=== PATIENT | male | born 1980 | race Caucasian/White ===

== ENCOUNTER 2019-07-01 11:37 | Inpatient (IN) | payer OTHER ==
[~2019-07-01] VITALS: Ht 182.9 cm; Wt 83.0 kg
[2019-07-01 12:27] LABS: BASO % 0.3 % (0.0-1.0); EOS # 0.1 10^3/uL (0.0-0.5); EOS % 0.6 % (0.0-3.0); HEMOGLOBIN 16.3 g/dl (13.5-17.5); LYMPH # 2.6 10^3/uL (1.5-5.0); LYMPH % 20.1 % (24.0-44.0); MEAN CORPUSCULAR HEMOGLOBIN 31.8 pg (27.0-33.0); MEAN CORPUSCULAR VOLUME 93.8 fl (80.0-96.0); MONO # 0.9 10^3/uL (0.0-0.8); NEUTROPHILS # 9.4 10^3/uL (1.5-8.5); NEUTROPHILS % 71.6 % (36.0-66.0); PLATELET COUNT, AUTOMATED 229 10^3/uL (150-450); RED BLOOD COUNT 5.12 10^6/uL (4.30-6.10); WHITE BLOOD COUNT 13.2 10^3/uL (4.0-10.0)
[2019-07-01 12:54] LABS: ALBUMIN 4.3 GM/DL (3.2-5.2); ALT/SGPT 27 U/L (12-78); BILIRUBIN,DIRECT 0.2 MG/DL (0.0-0.2); BILIRUBIN,TOTAL 0.8 MG/DL (0.2-1.0); BLOOD UREA NITROGEN 11 MG/DL (7-18); CALCIUM LEVEL 9.8 MG/DL (8.5-10.1); CARBON DIOXIDE LEVEL 29 MEQ/L (21-32); CHLORIDE LEVEL 105 MEQ/L (98-107); CREATININE FOR GFR 0.85 MG/DL (0.70-1.30); GLOMERULAR FILTRATION RATE > 60.0 (>60); GLUCOSE, FASTING 90 MG/DL (70-100); LIPASE 51 U/L (73-393); POTASSIUM SERUM 4.1 MEQ/L (3.5-5.1); SODIUM LEVEL 139 MEQ/L (136-145); TOTAL PROTEIN 7.6 GM/DL (6.4-8.2)
[2019-07-01] MEDS ORDERED: NS 1,000 ML IV ONE (13:30)
[2019-07-01] MEDS ORDERED: ONDANSETRON 4MG/2ML VIAL IV ONE (13:30)
[2019-07-01] MEDS ORDERED: MORPHINE 4 MG/ML 1ML VIAL/SYRINGE (J2270) IV ONE (13:30)
[2019-07-01] MEDS ORDERED: ISOVUE-370 76% 100ML VIAL As Ordered ONE (13:54)
[2019-07-01] MEDS ORDERED: MORPHINE 2 MG/ML 1ML VIAL (J2270) IV ONE ×2 (14:15→16:00)
--- NOTE | 2019-07-01 14:41 | REP ---
CT ABDOMEN AND PELVIS WITH IV CONTRAST: TECHNIQUE: Axial contrast enhanced images from the lung bases to the pubic symphysis using 100 mL Isovue-370 intravenous contrast material with multiplanar reformations. In the visualized lung bases, there is some fibrotic scarring in the left lower lobe. There is an old fracture of the left rib with some mild adjacent pleuroparenchymal scarring. The liver demonstrates a tiny hypodensity in the left lobe probably representing a tiny cyst . Spleen is unremarkable as are the adrenal glands and pancreas. Probably tiny cyst is seen in the lower pole of the right kidney. There is no hydronephrosis bilaterally. There is no abdominal aortic aneurysm. No adenopathy or free air is seen. The appendix is dilated with thickening and stranding of periappendiceal fat, consistent with appendicitis. In the base of the appendix, there is an appendicolith measuring 16 mm in diameter. More distally in the appendix, an appendicolith is seen measuring 7 mm in diameter. There is a tiny amount of free fluid in the pelvis. IMPRESSION: Appendicitis. There is a 16 mm appendicolith in the base of the dilated, thickened appendix. There is a 7 mm appendicolith in the more distal appendix. There is a tiny amount of free fluid in the pelvis. There is no periappendiceal abscess or evidence of free air. Electronically Signed by Stan Hernandez MD 07/01/2019 02:46 P
[2019-07-01] MEDS ORDERED: PIPERACILLIN/TAZOBACTAM SOD 3.375 GM in D5W MINI-BAG PLUS 50 ML IV ONE (14:45)
[2019-07-01] MEDS ORDERED: NICOTINE 14 MG/24 HR TRANSDERMAL TD ONE (16:00)
[2019-07-01] MEDS ORDERED: KETOROLAC 30 MG/ML 1ML VIAL IV ONE (18:00)
[2019-07-01] MEDS ORDERED: LIDOCAINE 1% SDV 30ML VIAL As Ordered ONE (21:08)
[2019-07-01] MEDS ORDERED: BUPIVACAINE HCL 0.25% 30ML VIAL As Ordered ONE (21:08)
[2019-07-01] MEDS ORDERED: ZOSYN 3.375GM VIAL (J2543) As Ordered ONE (21:41)
[2019-07-01] MEDS ORDERED: ROCURONIUM BROMIDE 50 MG/5 ML VIAL As Ordered ONE (21:54)
[2019-07-01] MEDS ORDERED: LIDOCAINE 2% 100MG/5ML SDV (FOR ANES.) As Ordered ONE (21:54)
[2019-07-01] MEDS ORDERED: fentaNYL 250 MCG/5 ML INJECTION (J3010) As Ordered ONE (21:54)
[2019-07-01] MEDS ORDERED: ACETAMINOPHEN 1000MG 100ML IV BTL (OFIRMEV) (J0131 PER 10MG) As Ordered ONE (21:54)
[2019-07-01] MEDS ORDERED: MIDAZOLAM INJ 2MG/2ML VIAL (J2250 PER 1MG) As Ordered ONE (21:54)
[2019-07-01] MEDS ORDERED: SUGAMMADEX SODIUM 500 MG/5 ML VIAL (BRIDION) As Ordered ONE (21:54)
[2019-07-01] MEDS ORDERED: KETOROLAC 60 MG/2 ML VIAL As Ordered ONE (21:54)
[2019-07-01] MEDS ORDERED: propofoL 200 MG/20 ML VIAL As Ordered ONE (21:54)
[2019-07-01] MEDS ORDERED: dexameTHASONE 4 MG/ML 1ML VIAL (J1100 PER 1MG) As Ordered ONE (21:54)
[2019-07-01] MEDS ORDERED: ONDANSETRON 4MG/2ML VIAL As Ordered ONE (21:54)
[2019-07-01] MEDS ORDERED: LR 1,000 ML IV SCH ×2 (22:34→23:00)
[2019-07-01] MEDS ORDERED: ONDANSETRON 4MG/2ML VIAL IV PRN ×2 (22:45→23:00)
[2019-07-01] MEDS ORDERED: PERCOCET 5MG/325MG TAB PO PRN (22:45)
[2019-07-01] MEDS ORDERED: MEPERIDINE INJ 25 MG/ML VIAL (J2175) As Ordered ONE (22:48)
[2019-07-01] MEDS ORDERED: ACETAMINOPHEN TAB 650MG DOSE (2X325MG) PO PRN (23:00)
[2019-07-01] MEDS ORDERED: fentaNYL 100 MCG/2 ML INJECTION (J3010) IV PRN (23:00)
[2019-07-01] MEDS ORDERED: oxyCODONE 5MG TAB PO PRN (23:00)
[2019-07-01] MEDS ORDERED: MEPERIDINE INJ 25 MG/ML VIAL (J2175) IV PRN (23:00)
[2019-07-01 23:46] VITALS: BP 123/70
[2019-07-02] VITALS (10 sets, daily range): BP systolic 101–116; BP diastolic 53–64
[2019-07-02] MEDS: KETOROLAC 30 MG/ML 1ML VIAL IV PRN ×3 (00:21→17:05)
[2019-07-02] MEDS: PIPERACILLIN/TAZOBACTAM SOD 3.375 GM in D5W MINI-BAG PLUS 50 ML IV SCH ×5 (00:22→22:47)
[2019-07-02] MEDS: NICOTINE 21MG/24HR 1 EA TRANSDERMAL TD SCH ×2 (01:32→09:48)
[2019-07-02] MEDS: MORPHINE 2 MG/ML 1ML VIAL (J2270) IV PRN ×4 (01:51→22:50)
[2019-07-02] MEDS: PERCOCET 5MG/325MG TAB PO PRN ×2 (03:05→18:44)
[2019-07-02 06:29] LABS: HEMATOCRIT 40.9 % (42.0-52.0); MEAN CORPUSCULAR HEMOGLOBIN 31.7 pg (27.0-33.0); MEAN CORPUSCULAR HGB CONC 33.7 g/dl (32.0-36.5); MEAN CORPUSCULAR VOLUME 93.8 fl (80.0-96.0); PLATELET COUNT, AUTOMATED 187 10^3/uL (150-450); RED BLOOD COUNT 4.36 10^6/uL (4.30-6.10); WHITE BLOOD COUNT 16.3 10^3/uL (4.0-10.0)
[2019-07-02 06:39] LABS: HEMOGLOBIN 13.8 g/dl (13.5-17.5)
[2019-07-02 06:53] LABS: BLOOD UREA NITROGEN 14 MG/DL (7-18); CALCIUM LEVEL 8.1 MG/DL (8.5-10.1); CARBON DIOXIDE LEVEL 29 MEQ/L (21-32); CHLORIDE LEVEL 105 MEQ/L (98-107); CREATININE FOR GFR 1.05 MG/DL (0.70-1.30); GLOMERULAR FILTRATION RATE > 60.0 (>60); GLUCOSE, FASTING 157 MG/DL (70-100); SODIUM LEVEL 140 MEQ/L (136-145)
[2019-07-02 07:06] LABS: BASOPHILS 1 % (0-1); LYMPHOCYTES 5 % (16-44); MONOCYTES 2 % (0-5); NEUTROPHILS 91 % (28-66); PLATELET ESTIMATE NORMAL (NORMAL)
[2019-07-02] MEDS: ENOXAPARIN 40MG/0.4ML SYRINGE (J1650 PER 10MG) SC SCH (09:48)
[2019-07-02] MEDS: SENOKOT S TAB PO SCH ×2 (09:48→22:47)
[2019-07-02] MEDS: PANTOPRAZOLE 40MG VIAL (C9113 PER 1) IV SCH (09:48)
--- NOTE | 2019-07-02 12:55 | HPEPDOC ---
General Surgery H&P Date of Admission July 01, 2019 Attending Physician: MYA ROMO MD History and Physical CHIEF COMPLAINT: Abdominal pain HISTORY OF PRESENT ILLNESS: Patient is a 38-year-old male prisoner from a local snf brought in with complaints of 2 day history of severe abdominal pain with nausea and vomiting. ALLERGIES: Please see below. HOME MEDICATIONS: Please see below. PAST MEDICAL HISTORY: 1. . 2. . PAST SURGICAL HISTORY: 1. . 2. . PERSONAL/SOCIAL HISTORY: [Denies smoking, alcohol use, or recreational drug use]. REVIEW OF SYSTEMS: GENERAL: [Denies chills, fatigue, fever, weight gain and weight loss]. HEENT: [Denies blurred vision and double vision. Denies ear symptoms. Denies hoarseness]. NECK: [Denies any neck pain]. CARDIOVASCULAR: [Denies chest pain and palpitations]. MUSCULOSKELETAL: [Denies arthralgias, back pain and thrombophlebitis]. SKIN: [Denies rash]. NEUROLOGIC: [Denies headache, stroke and transient ischemic attack]. PSYCHIATRIC: [Denies anxiety and depression]. ENDOCRINE: [Denies thyroid disease]. HEMATOLOGY/ONCOLOGY: [Denies any bleeding or clotting disorder]. HEART: [Denies any chest pains, palpitations, paroxysmal dyspnea, orthopnea]. PULMONARY: [Denies chronic cough, dyspnea and wheezing]. GASTROINTESTINAL: [Denies rectal bleeding, family history of colon cancer, constipation, diarrhea, dysphagia, heartburn and jaundice]. GENITOURINARY: [Denies dysuria, frequency, hematuria and nocturia]. ENDOCRINE: [Denies polydipsia, polyphagia, polyuria, heat or cold intolerance]. INFECTIOUS: [Denies any recent upper respiratory tract infection, UTI, need for use of antibiotics]. NUTRITION: [Reports good appetite]. PHYSICAL EXAMINATION: VITAL SIGNS: Please see below. GENERAL APPEARANCE: [Patient seen at bedside, appears comfortable]. [Awake, alert, oriented]. HEENT: [Normocephalic, atraumatic. [place] palpebral conjunctivae. Anicteric sclerae. Lips moist]. CHEST: [No chest wall abnormalities. Normal respiratory motion/effort]. NECK: [Supple. No thyromegaly. No lymphadenopathies]. LUNGS: [Lung sounds are clear to auscultation bilaterally. No wheezing appreciated]. HEART: [No chest wall abnormalities. Heart rate and rhythm are regular with no murmurs]. ABDOMEN: [Abdomen is obese, soft, slightly rounded. No hepatosplenomegaly. No umbilical or groin herniations, nondistended. No noticeable rebound or guarding. No grimacing with palpation. No rebound tenderness. No masses appreciated]. SKIN: [Warm, moist]. EXTREMITIES: [Extremities have no deformities. No edema identified]. NEUROLOGICAL: . ANCILLARIES: . LABORATORY DATA: Please see below. MICROBIOLOGY: Please see below. IMAGING: . IMPRESSION AND PLAN: Acute appendicitis Vital Signs Vital Signs Date Time Temp Pulse Resp B/P (MAP) Pulse Ox O2 Delivery O2 Flow Rate FiO2 07/02/19 08:00 97.9 72 17 113/53 (73) 98 Room Air 07/01/19 22:45 10 I&Os I&O- Last 24 Hours up to 6 AM 07/02/19 06:00 Intake Total 3295 ml Output Total 735 ml Balance 2560 ml Laboratory Data Labs 24H Laboratory Tests 2 07/01/19 15:10: Coronavirus (COVID-19)(PCR) NEGATIVE 07/02/19 05:25: Neutrophils (%) (Auto) , Nucleated Red Blood Cells % (auto) 0.0, Neutrophils 91H, Band Neutrophils 1, Lymphocytes (Manual) 5L, Monocytes (Manual) 2, Basophils (Manual) 1, Red Blood Cell Morphology NORMAL, Platelet Estimate NOR MAL, Anion Gap 6L, Glomerular Filtration Rate > 60.0, Calcium Level 8.1#L CBC/BMP Laboratory Tests 07/02/19 05:25 Microbiology Microbiology 07/01/19 Gram Stain - Final, Resulted 07/01/19 Body Fluid Culture, Resulted Pending 07/01/19 Anaerobic Culture, Resulted Pending Home Medications No Active Prescriptions or Reported Meds Allergies Coded Allergies: tramadol (Verified Allergy, Intermediate, rash, 07/01/19) MYA ROMO MD July 02, 2019 12:55
--- NOTE | 2019-07-02 12:56 | ROOPDOC ---
[facility] Report Of Operation Report of Operation DATE OF PROCEDURE: 07/01/19 PREPROCEDURE DIAGNOSES: Acute appendicitis. POSTPROCEDURE DIAGNOSES: Acute appendicitis with perforation. PROCEDURE: Laparoscopic appendectomy. SURGEON: Bruno Rivera MD FINANCIAL ANALYST: ANESTHESIA: Gen. anesthesia. ESTIMATED BLOOD LOSS: Approximately 20 mL. COMPLICATIONS: None. REMARKS: Overall healthy 38-year-old male, from a local half-way brought in to the emergency room with a 2 day history of right lower quadrant abdominal pain, and right side localized peritonitis on exam and evidence for acute appendicitis on CT.. PROCEDURE NOTE: Free fluid around the liver and in the pelvis which appears brownish, murky in appearance. The omentum surrounding the cecum and distal end of the small bowel is adhered with inflammatory exudates to the cecum. The appendix is rather short in course but very distended the proximal third portion with a thickened inflamed mesentery and perforation at that site and noted drainage of clear fluid from the perforation. The base of the appendix is inflamed but healthy appearance. DESCRIPTION OF PROCEDURE: Patient has been given a dose of Zosyn in the emergency room and repeated during the procedure. Patient was brought to the operating room, placed supine on the table. Sequential compression device placed for DVT prophylaxis. General endotracheal anesthesia started. The abdomen prepped and draped in usual sterile fashion. After a surgical timeout, we began our surgery Entry into the abdomen done through an incision above the umbilicus. Veress needle inserted on a controlled fashion. Intra-abdominal placement confirmed with saline drop technique. CO2 insufflation started to a pressure of 15 mmHg. Using the same incision an 8 mm port was placed under direct vision of laparoscope. Insertion site was inspected for injury and none was found. He was placed on a Trendelenburg position the right side tilted to about 30 to allow for better visualization of the appendix. Two 5 mm working ports were placed at the suprapubic area and left lower quadrant area under direct vision. Operative findings: On entry there is murky-appearing ascites especially prominent at the pelvis also at the right gutter and slightly perihepatic. The o mentum on the right lower quadrant appears inflamed with inflammatory exudates in it. This was stuck to the underlying cecum and appendix. This was lysed away and retracted to the upper quadrants revealing secondary enteritis on the small bowel located in the lower abdomen, brownish murky ascites in the pelvis and an inflamed enlarged appendix. The appendix was located, the adhered bowels and mesentery was widely dissected away from the appendix freeing up the appendix from the inflammatory adhesions using [place] instrument and suction irrigation. The Surrounding bowels retracted away from the appendix. This was grasped to pull the base of the appendix into view. The mesoappendix was divided using Harmonic scalpel down to the base. The proximal third of the appendix is quite enlarged with a perforation noted towards the base with the cage of clear fluid. I dissected beyond the area to be able to get a good purchase on the stump of the appendix. I upsized the umbilical port to a 12 mm port to accommodate his stapler. I used a 45 mm stapler with blue load to transect the appendix at the base. The staple line was examined and noted to be healthy. No bleeding noted along the staple line. Stump appears healthy. Appendix was then delivered into an Endo Catch bag. After re-insufflation the surgical site was inspected for hemostasis, the visualized fluid collections irrigated and suctioned off until clear return. A sample of the fluid was sent for microbiology. Surrounding areas of the abdomen and inspected for fluid collections or signs of injury. A 19 Oscar drain was left in place close to the abdomen initial stump for monitoring and for drainage of fluid irrigation. The abdomen was deflated. All ports removed. The umbilical fascial defect repaired with 0 Vicryl in a mattress fashion. All skin incisions closed with 4-0 Monocryl in a subcuticular fashion. Steri-Strips and gauze dressing used for wound coverage. Patient was promptly awake and extubated and brought to recovery room stable. All counts of sponges and instruments verified to be correct. BRUNO RIVERA MD July 02, 2019 12:56
[2019-07-03 01:15] VITALS: BP 114/67
[2019-07-03 02:00] VITALS: BP 119/64
[2019-07-03] MEDS ORDERED: NS 1,000 ML IV ONE (02:00)
[2019-07-03] MEDS: PERCOCET 5MG/325MG TAB PO PRN ×4 (02:02→23:08)
[2019-07-03] MEDS: KETOROLAC 30 MG/ML 1ML VIAL IV PRN ×3 (02:03→14:10)
[2019-07-03] MEDS: PIPERACILLIN/TAZOBACTAM SOD 3.375 GM in D5W MINI-BAG PLUS 50 ML IV SCH ×4 (05:40→23:05)
[2019-07-03] MEDS: MORPHINE 2 MG/ML 1ML VIAL (J2270) IV PRN ×4 (05:42→20:54)
[2019-07-03 05:49] LABS: BASO % 0.3 % (0.0-1.0); EOS # 0.2 10^3/uL (0.0-0.5); EOS % 1.7 % (0.0-3.0); HEMATOCRIT 37.1 % (42.0-52.0); HEMOGLOBIN 12.5 g/dl (13.5-17.5); LYMPH # 2.1 10^3/uL (1.5-5.0); LYMPH % 17.9 % (24.0-44.0); MEAN CORPUSCULAR HEMOGLOBIN 32.2 pg (27.0-33.0); MEAN CORPUSCULAR HGB CONC 33.7 g/dl (32.0-36.5); MEAN CORPUSCULAR VOLUME 95.6 fl (80.0-96.0); MONO # 0.5 10^3/uL (0.0-0.8); MONO % 4.3 % (0.0-5.0); NEUTROPHILS # 8.9 10^3/uL (1.5-8.5); NEUTROPHILS % 75.4 % (36.0-66.0); PLATELET COUNT, AUTOMATED 166 10^3/uL (150-450); RED BLOOD COUNT 3.88 10^6/uL (4.30-6.10); WHITE BLOOD COUNT 11.9 10^3/uL (4.0-10.0)
[2019-07-03 06:00] VITALS: BP 117/63
[2019-07-03 06:06] LABS: BLOOD UREA NITROGEN 12 MG/DL (7-18); CALCIUM LEVEL 7.6 MG/DL (8.5-10.1); CARBON DIOXIDE LEVEL 30 MEQ/L (21-32); CHLORIDE LEVEL 111 MEQ/L (98-107); CREATININE FOR GFR 0.85 MG/DL (0.70-1.30); GLOMERULAR FILTRATION RATE > 60.0 (>60); GLUCOSE, FASTING 110 MG/DL (70-100); POTASSIUM SERUM 3.9 MEQ/L (3.5-5.1); SODIUM LEVEL 144 MEQ/L (136-145)
[2019-07-03] MEDS: SENOKOT S TAB PO SCH ×2 (07:52→20:52)
[2019-07-03] MEDS: NICOTINE 21MG/24HR 1 EA TRANSDERMAL TD SCH (07:53)
[2019-07-03] MEDS: ENOXAPARIN 40MG/0.4ML SYRINGE (J1650 PER 10MG) SC SCH (07:53)
[2019-07-03] MEDS: PANTOPRAZOLE 40MG VIAL (C9113 PER 1) IV SCH (07:53)
[2019-07-03] MEDS: MIRALAX *UNIT DOSE* 17GM PACKET PO SCH (10:06)
[2019-07-03] MEDS ORDERED: MORPHINE 4 MG/ML 1ML VIAL/SYRINGE (J2270) IV ONE (11:30)
[2019-07-03] MEDS: TAMSULOSIN 0.4 MG CAP PO SCH (11:38)
--- NOTE | 2019-07-03 11:55 | IPNPDOC ---
Text Note Date of Service The patient was seen on 07/02/19. VS,Ricky, I+O VS, Kirstiee, I+O Laboratory Tests 07/03/19 05:33 Vital Signs Date Time Temp Pulse Resp B/P (MAP) Pulse Ox O2 Delivery O2 Flow Rate FiO2 07/03/19 11:38 18 Room Air 07/03/19 06:00 97.6 73 117/63 (81) 98 07/02/19 18:44 0.0 I&O- Last 24 Hours up to 6 AM 07/03/19 06:00 Intake Total 3536 ml Output Total 900 ml Balance 2636 ml MYA ROMO MD July 03, 2019 11:55
--- NOTE | 2019-07-03 12:03 | IPNPDOC ---
Subjective General Date/Time Seen The patient was seen on 07/03/19 at 11:55. Subject Chief Complaint/History The patient is a 38-year-old male admitted with a reason for visit of Acute Appendicitis. He is postop day 2 following laparoscopic appendectomy for perforated appendicitis. He is complaining today of pain at the mid shaft of his pain is radiating to his groin and his testicles flares up when he pees and immediately after. He denies hematuria though prior to the surgery he did have some arrange looking urine in the preop area. He does have a history of passing kidney stones out. A urinalysis was ordered by the the covering surgeon overnight and this was clear without any evidence of RBC the urine. He has been afebrile. He is tolerating diet. Has not had any bowel movements. He remains on Zosyn. Current Medications Current Medications Current Medications Medications (Trade) Dose Ordered Sig/Rochelle Route PRN Reason Start Time Stop Time Status Last Admin Dose Admin Acetaminophen (Tylenol Tab) 650 mg Q4HP PRN PO PAIN OR FEVER 07/01/19 23:00 Enoxaparin Sodium (Lovenox) 40 mg DAILY SC 07/02/19 09:00 07/03/19 07:53 Fentanyl Citrate (Sublimaze) 25 mcg Q5MP PRN IV PAIN LEVEL 5-10 07/01/19 23:00 07/01/19 23:59 DC Home Med (Med Rec Complete!) ASDIRECTED XX 07/01/19 15:30 07/01/19 15:24 DC Ketorolac Tromethamine (ToRADol) 30 mg Q6HP PRN IV MILD/MODERATE PAIN (PS 1-7) 07/02/19 00:00 07/07/19 00:00 07/03/19 07:52 Lactated Ringer's 1,000 ml @ 80 mls/hr [id number] IV 07/01/19 22:34 07/02/19 10:54 DC 07/02/19 00:19 Lactated Ringer's 1,000 ml @ 100 mls/hr Q10H IV 07/01/19 23:00 07/01/19 23:59 DC Meperidine HCl (Demerol) 12.5 mg Q5MP PRN IV SHIVERING 07/01/19 23:00 07/01/19 23:59 DC 07/01/19 22:50 Morphine Sulfate (Morphine Sulfate Inj) 4 mg Q4H PRN IV SEVERE PAIN (PS 8-10) 07/01/19 22:45 07/03/19 10:10 Nicotine (Nicoderm Cq 21mg) 1 patch DAILY TD 07/02/19 01:18 07/03/19 07:53 Ondansetron HCl (ZOFRAN INJection) 4 mg Q4HP PRN IV NAUSEA OR VOMITING 07/01/19 23:00 07/01/19 23:59 DC Ondansetron HCl (ZOFRAN INJection) 4 mg Q6HP PRN IV NAUSEA OR VOMITING 07/01/19 22:45 07/02/19 14:28 Oxycodone HCl (Roxicodone, Oxyir) 5 mg ASDIRECTED PRN PO PAIN LEVEL 1-4 07/01/19 23:00 07/01/19 23:59 DC 07/01/19 23:30 Oxycodone/ Acetaminophen (Percocet 5mg/ 325mg Tablet) 1 tab Q4H PRN PO MILD/MODERATE PAIN (PS 1-7) 07/01/19 22:45 Oxycodone/ Acetaminophen (Percocet 5mg/ 325mg Tablet) 2 tab Q6H PRN PO SEVERE PAIN (PS 8-10) 07/01/19 22:45 07/03/19 07:54 Pantoprazole Sodium (Protonix) 40 mg DAILY IV 07/02/19 09:00 07/03/19 07:53 Phenazopyridine HCl (Pyridium) 100 mg BID PO 07/03/19 09:00 Piperacillin Sod/ Tazobactam Sod 3.375 gm/Dextrose 50 ml @ 50 mls/hr Q6H IV 07/01/19 23:00 07/03/19 10:07 Polyethylene Glycol (Miralax) 1 pkt DAILY PO 07/03/19 09:00 07/03/19 10:06 Senna/Docusate Sodium (Senokot S) 1 tab BID PO 07/02/19 09:00 07/03/19 07:52 Tamsulosin HCl (Flomax) 0.4 mg DAILY PO 07/03/19 09:00 07/03/19 11:38 Allergies Coded Allergies: tramadol (Verified Allergy, Intermediate, rash, 07/01/19) Objective Physical Examination Examination GENERAL APPEARANCE: On examination he looks uncomfortable mainly from the pain on the lower abdomen, right groin, moves gingerly from sitting to supine position. SKIN: Warm and dry. HEENT: Normocephalic, atraumatic. Lips and mucosa appear moist. LUNGS: Clear to auscultation bilaterally. No wheezing appreciated. HEART: Regular heart rate and rhythm. ABDOMEN: Abdomen is minimally distended and slightly tympanitic to percussion, soft, mild tenderness over the right lower quadrant area which slightly worsens as it approaches the right groin into the bottom of the scrotum. There is no corresponding tenderness in the left groin. He has also mildly tender around the drain exit site in the left lower quadrant history and is now putting out serosanguineous fluid, before this was dark brown murky. EXTREMITIES: No significant extremity edema. Vital Signs Vital Signs Date Time Temp Pulse Resp B/P (MAP) Pulse Ox O2 Delivery O2 Flow Rate FiO2 07/03/19 11:38 18 Room Air 07/03/19 06:00 97.6 73 117/63 (81) 98 07/02/19 18:44 0.0 I&Os I&O- Last 24 Hours up to 6 AM 07/03/19 06:00 Intake Total 3536 ml Output Total 900 ml Balance 2636 ml Laboratory Data Labs 24H Laboratory Tests 2 07/03/19 05:16: Urine Color YELLOW, Urine Appearance CLEAR, Urine pH 5.0, Urine Specific [place] 1.010, Urine Protein NEGATIVE, Urine Glucose (UA) NEGATIVE, Urine Ketones NEGATIVE, Urine Blood NEGATIVE, Urine Nitrite NEGATIVE, Urine Bilirubin NEGATIVE, Urine Urobilinogen 0.2, Urine Leukocyte Esterase NEGATIVE, Urine WBC (Auto) 1, Urine RBC (Auto) 3, Urine Hyaline Casts (Auto) 0, Urine Bacteria (Au to) NEGATIVE, Urine Squamous Epithelial Cells 0, Urine Mucus (Auto) SMALL, Urine Sperm (Auto) 07/03/19 05:33: Immature Granulocyte % (Auto) 0.4, Neutrophils (%) (Auto) 75.4H, Lymphocytes (%) (Auto) 17.9L, Monocytes (%) (Auto) 4.3, Eosinophils (%) (Auto) 1.7, Basophils (%) (Auto) 0.3, Neutrophils # (Auto) 8.9H, Lymphocytes # (Auto) 2.1, Monocytes # (Auto) 0.5, Eosinophils # (Auto) 0.2, Basophils # (Auto) 0.0, Nucleated Red Blood Cells % (auto) 0.0, Anion Gap 3L, Glomerular Filtration Rate > 60.0, Calcium Level 7.6L CBC/BMP Laboratory Tests 07/03/19 05:33 Microbiology Microbiology 07/01/19 Gram Stain - Final, Resulted 07/01/19 Body Fluid Culture, Resulted Pending 07/01/19 Anaerobic Culture, Resulted Pending Impression Acute perforated appendicitis status post laparoscopic appendectomy, postop day 2 In terms of the perforated appendicitis he is not showing any signs of fever, sepsis and his leukocytosis started to come down. Is a 16,000 yesterday down to 11,000 today. His abdomen is mildly distended but relatively benign in appearance and his drain is not putting out serosanguineous fluid. There is roughly about 60 mL in the CHUCK bulb which is his output for the shift. Yesterday this was dark brown and murky. So from this standpoint syllabus is not febrile and his leukocytosis continues to taper down to normal we should be able to convert to by mouth antibiotics. There was an issue with regards to whether he will be able to go back to longterm with a drain and I was able to speak to the physician at the longterm (Dr. Muro) who is a surgeon and he tells me that he could take care of the drain and the longterm when he returns. Secondary issue is with regards to his complaint of right groin pain, right penile pain and right scrotal pain. I examined him and he does not have any right groin hernia. He does have a prior history of passing kidney stones. No signs of hydronephrosis on the admitting CT scan and he had a normal urinalysis done early this morning so unlikely he is passing a stone. I suspect this is an element of cystitis from the irritation from the infected fluid. I'll add some Flomax and Pyridium and see if this will alleviate the discomfort. I discussed his ongoing progress with Dr. Muro after my visit. Most likely will be able to discharge him in a day or 2 with by mouth antibiotics with or without the drain. Plan / VTE VTE Prophylaxis Ordered?: Yes MYA ROMO MD July 03, 2019 12:03
[2019-07-03] MEDS: PHENAZOPYRIDINE 100 MG TAB PO SCH ×2 (13:10→20:53)
[2019-07-03 14:00] VITALS: BP 120/62
[2019-07-03 22:00] VITALS: BP 122/63
[2019-07-04] MEDS: MORPHINE 2 MG/ML 1ML VIAL (J2270) IV PRN (01:31)
[2019-07-04] MEDS: PIPERACILLIN/TAZOBACTAM SOD 3.375 GM in D5W MINI-BAG PLUS 50 ML IV SCH ×2 (04:29→10:22)
[2019-07-04 05:55] LABS: BASO % 0.6 % (0.0-1.0); EOS # 0.3 10^3/uL (0.0-0.5); EOS % 4.8 % (0.0-3.0); HEMATOCRIT 35.4 % (42.0-52.0); HEMOGLOBIN 11.9 g/dl (13.5-17.5); LYMPH # 1.8 10^3/uL (1.5-5.0); MEAN CORPUSCULAR HEMOGLOBIN 32.1 pg (27.0-33.0); MEAN CORPUSCULAR HGB CONC 33.6 g/dl (32.0-36.5); MEAN CORPUSCULAR VOLUME 95.4 fl (80.0-96.0); MONO # 0.5 10^3/uL (0.0-0.8); MONO % 7.9 % (0.0-5.0); NEUTROPHILS # 3.9 10^3/uL (1.5-8.5); NEUTROPHILS % 59.5 % (36.0-66.0); PLATELET COUNT, AUTOMATED 176 10^3/uL (150-450); RED BLOOD COUNT 3.71 10^6/uL (4.30-6.10); WHITE BLOOD COUNT 6.6 10^3/uL (4.0-10.0)
[2019-07-04 06:00] VITALS: BP 126/68
[2019-07-04 06:11] LABS: BLOOD UREA NITROGEN 8 MG/DL (7-18); CALCIUM LEVEL 7.9 MG/DL (8.5-10.1); CARBON DIOXIDE LEVEL 28 MEQ/L (21-32); CHLORIDE LEVEL 111 MEQ/L (98-107); CREATININE FOR GFR 0.78 MG/DL (0.70-1.30); GLOMERULAR FILTRATION RATE > 60.0 (>60); GLUCOSE, FASTING 123 MG/DL (70-100); POTASSIUM SERUM 3.7 MEQ/L (3.5-5.1); SODIUM LEVEL 145 MEQ/L (136-145)
[2019-07-04] MEDS: ENOXAPARIN 40MG/0.4ML SYRINGE (J1650 PER 10MG) SC SCH (08:15)
[2019-07-04] MEDS: PANTOPRAZOLE 40MG VIAL (C9113 PER 1) IV SCH (08:15)
[2019-07-04] MEDS: MIRALAX *UNIT DOSE* 17GM PACKET PO SCH (08:15)
[2019-07-04] MEDS: SENOKOT S TAB PO SCH (08:16)
[2019-07-04] MEDS: PERCOCET 5MG/325MG TAB PO PRN (08:16)
[2019-07-04] MEDS: TAMSULOSIN 0.4 MG CAP PO SCH (08:16)
[2019-07-04] MEDS: NICOTINE 21MG/24HR 1 EA TRANSDERMAL TD SCH (08:17)
[2019-07-04] MEDS ORDERED: METR-265 PO (09:53)
[2019-07-04] MEDS ORDERED: CIPR-249 PO (09:53)
[2019-07-04] MEDS ORDERED: PHEN-593 PO (09:53)
[2019-07-04] MEDS ORDERED: PERCOCET PO (09:53)
[2019-07-04] MEDS: PHENAZOPYRIDINE 100 MG TAB PO SCH (10:22)
--- NOTE | 2019-07-04 10:59 | IPNPDOC ---
Text Note Date of Service The patient was seen on 07/04/19. NOTE Patient feeling mildly better from the groin pain as well as from the dysuria. He remains afebrile. He is tolerating regular food. He has not had a bowel movement postoperatively. Vital signs reviewed, afebrile, non-tachycardic. I/O CHUCK drain output 150 mL see yesterday, so far 110 mL's today, slightly murky serous fluid now On examination, he was laying down on this left side and I entered the room still moves came to gingerly mostly from right groin discomfort. Abdomen is fairly flat and only minimally distended at this point. The dressings were removed from his port sites in this are clean and dry. He has a left lower quadrant drain that is now mostly serous in output but still kind murky in appearance. Laboratories His white cell count has normalized to 8.9 now. His intraoperative cultures show growth of Escherichia coli that is sensitive to fluoroquinolones. Impression and plan He is postop day 3 following laparoscopic appendectomy for a perforated appe ndicitis. No loculated abscesses found that has purulent appearing ascites intraoperatively a drain was placed for postoperative monitoring and this is draining mostly serous fluid now. He has been afebrile and his leukocytosis has normalized at this point. I think it is okay to [facility] to [facility]. I spoke with Dr. Muro was also a general surgeon who is in charge of the [facility] and he is willing to assume care and take care of the drain. So I will send him back to the [facility] with a drain and a think within the next couple of days once the drain output has decreased enough that he can discontinue this. I suggest continuing him on ciprofloxacin and metronidazole for another 7 days. I'll also continue him on the Pyridium. Think the dysuria and the groin pain probably is related to some mild reactive cystitis from the purulent fluid. He seems to be better with the Pyridium added to his regimen. VS,Fishbone, I+O VS, Fishbone, I+O Laboratory Tests 07/04/19 05:34 Vital Signs Date Time Temp Pulse Resp B/P (MAP) Pulse Ox O2 Delivery O2 Flow Rate FiO2 07/04/19 08:46 16 07/04/19 06:00 97.5 61 126/68 (87) 100 07/04/19 01:41 Room Air 07/02/19 18:44 0.0 I&O- Last 24 Hours up to 6 AM 07/04/19 06:00 Intake Total 1290 ml Output Total 2965 ml Balance -1675 ml MYA ROMO MD July 04, 2019 10:59
--- NOTE | 2019-07-04 11:14 | DS.PDOC ---
Discharge Summary General Date of Admission July 01, 2019 at 22:34 Date of Discharge 07/04/2019 Attending Physician: MYA ROMO MD Discharge Summary PROCEDURES PERFORMED DURING STAY: Laparoscopic appendectomy. ADMITTING DIAGNOSES: 1. Acute appendicitis with perforation. DISCHARGE DIAGNOSES: 1. Acute appendicitis with perforation. COMPLICATIONS/CHIEF COMPLAINT: Acute Appendicitis. HISTORY OF PRESENT ILLNESS: . HOSPITAL COURSE: . DISCHARGE MEDICATIONS: Please see below. ALLERGIES: Please see below. PHYSICAL EXAMINATION ON DISCHARGE: VITAL SIGNS: Please see below. GENERAL: HEENT: NECK: CARDIOVASCULAR EXAMINATION: RESPIRATORY EXAMINATION: ABDOMINAL EXAMINATION: EXTREMITIES: SKIN: NEUROLOGICAL EXAMINATION: PSYCHIATRIC EXAMINATION: LABORATORY DATA: Please see below. IMAGING: PROGNOSIS: ACTIVITY: [As tolerated]. DIET: DISCHARGE PLAN: DISPOSITION: . DISCHARGE INSTRUCTIONS: 1. . ITEMS TO FOLLOWUP ON ON OUTPATIENT: 1. . DISCHARGE CONDITION: [Stable]. TIME SPENT ON DISCHARGE: Greater than minutes. Vital Signs/I&Os Vital Signs Date Time Temp Pulse Resp B/P (MAP) Pulse Ox O2 Delivery O2 Flow Rate FiO2 07/04/19 08:46 16 07/04/19 06:00 97.5 61 126/68 (87) 100 07/04/19 01:41 Room Air 07/02/19 18:44 0.0 I&O- Last 24 Hours up to 6 AM 07/04/19 06:00 Intake Total 1290 ml Output Total 2965 ml Balance -1675 ml Laboratory Data Labs 24H Laboratory Tests 2 07/04/19 05:34: Immature Granulocyte % (Auto) 0.2, Neutrophils (%) (Auto) 59.5, Lymphocytes (%) (Auto) 27.0, Monocytes (%) (Auto) 7.9H, Eosinophils (%) (Auto) 4.8H, Basophils (%) (Auto) 0.6, Neutrophils # (Auto) 3.9, Lymphocytes # (Auto) 1.8, Monocytes # (Auto) 0.5, Eosinophils # (Auto) 0.3, Basophils # (Auto) 0.0, Nucleated Red Blood Cells % (auto) 0.0, Anion Gap 6L, Glomerular Filtration Rate > 60.0, Calcium Level 7.9L CBC/BMP Laboratory Tests 07/04/19 05:34 Microbiology Microbiology 07/01/19 Gram Stain - Final, Resulted 07/01/19 Body Fluid Culture - Final, Resulted Escherichia Coli 07/01/19 Anaerobic Culture, Resulted Pending Discharge Medications Scheduled Ciprofloxacin HCl (Cipro) 500 Mg Tablet, 1 TAB PO BID Metronidazole (Metronidazole) 500 Mg Tablet, 500 MG PO TID Phenazopyridine HCl (Phenazopyridine HCl) 100 Mg Tablet, 100 MG PO BID Scheduled PRN Oxycodone/Acetaminophen (Oxycodone-Acetaminophen 5-325) 1 Each Tablet, 1 TAB PO Q4H PRN for MILD/MODERATE PAIN (PS 1-7) Allergies Coded Allergies: tramadol (Verified Allergy, Intermediate, rash, 07/01/19) MYA ROMO MD July 04, 2019 11:13
== END 2019-07-04 12:28 | DRG 225 ==
LOC: M ED 11:37 → ENRESERV 18:59 → M SDC 20:00 → M ED INP 22:34 → M MSPAV 23:46
PROVIDERS: ADMIT Surgery; ATTEND Surgery
PROC: 0DTJ4ZZ Resection of Appendix, Percutaneous Endoscopic Approach (ICD-10-PCS; principal; 2019-07-01 21:00)
DX: K35.20 Acute appendicitis with generalized peritonitis, without abscess (principal); F17.200 Nicotine dependence, unspecified, uncomplicated; R10.9 Unspecified abdominal pain; Z88.5 Allergy status to narcotic agent; Z87.442 Personal history of urinary calculi